=== PATIENT | male | born 1960 | race Caucasian/White ===

== ENCOUNTER 2016-06-16 22:04 | Emergency (ER) | payer OTHER ==
--- NOTE | 2016-06-16 22:51 | ED NURSING NOTES ---
Clinical Report - Nurses [facility] [address] [place] [address] 06/16/2016 22:05 Patient: JOSE CHEN TRIAGE Triage time 22:21 Jun 16 2016. Acuity: LEVEL 4. Chief Complaint: LEFT LOWER EXTREMITY PAIN, SWELLING, REDNESS, NUMBNESS and TINGLING. Location of symptoms- (Pt has a visible wound in between his 4th and 5th toes. His 4th toe is grossly swollen.). SEPSIS SCREEN: Sepsis Screen: heart rate greater than 90. --22:30 Ryan Ortega R.N. 22:21 06/16/16. BP: 100/78. HR: 97. RR: 18. O2 saturation: 97% on room air. Temp: 100.7 F. Pain level now: 0/10. --22:30 Ryan Ortega R.N. Weight: 147.4 kg stated. Height/Length: 72 inches Per Patient. BMI: 44.1. --22:21 Ryan Ortega R.N. Medications Mirapex Oral. --22:24 Ryan Ortega R.N. Humalin. --22:25 Ryan Ortega R.N. MetFORMIN HCl Oral. --22:25 Ryan Ortega R.N. Chlorathalodone. --22:27 Ryan Ortega R.N. Pantoprazole Sodium Oral. Simvastatin Oral. --22:27 Ryan Ortega R.N. Losartan Potassium Oral. --22:27 Ryan Ortega R.N. Gabapentin Oral. --22:28 Ryan Ortega R.N. Aspirin Adult Low Strength Oral. --22:28 Ryan Ortega R.N. Allergies Penicillin. --22:24 Ryan Ortega R.N. History Arrived by private vehicle. Historian: patient and family. Accompanied by family. This occurred today. It is described as radiating to the left (Pain radiating to L flank). He has had swelling and fever. 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 (Gabapentin). PAST MEDICAL HX: Tetanus status: up-to-date. Immunizations: up-to-date. SOCIAL HX: Never smoker. No alcohol use or drug use. No infectious disease exposure. FALL RISK ASSESSMENT: Fall risk assessment completed. No fall risk identified. NUTRITIONAL RISK ASSESSMENT: The nutritional risk assessment revealed no deficiencies. FUNCTIONAL ASSESSMENT: Functional assessment: no impairments noted. LEARNING NEEDS ASSESSMENT: The learning needs assessment revealed no barriers. SKIN INTEGRITY ASSESSMENT: Skin integrity risk assessment completed. No skin integrity risk identified. --22:30 Rayn Ortega R.N. PROBLEMS: Abdominal Pain. Sleep Apnea. Hypertension. Diabetes Mellitus. --22:28 Ryan Ortega R.N. ADDITIONAL SURGERIES: Adenoidectomy. Appendectomy. Ear surgery. Tonsillectomy. --22:29 Ryan Ortega R.N. Interventions ID band on patient. --22:30 Ryan Ortega R.N. PHYSICAL ASSESSMENT GENERAL / NEURO / PSYCH: Oriented X 4. Alert. Appears in no acute distress. EXTREMITIES: Increased warmth on the extremities. Edema of the left lower extremity. 4th toe. Extremity pulses are within normal limits. Left foot: swelling and erythema. Limited weight bearing secondary to pain. SKIN: Single old draining wound present on the left foot. Skin is warm and dry. --22:31 Ryan Ortega R.N. NURSING PROGRESS NOTES The plan of care for this patient has been created. Monitoring of patient in place. Extremity elevated. Reassurance given. Two patient identifiers checked. Side rails up x 2. Bed placed in lowest position. Patient ready for evaluation- chart flagged and SPECIAL EFFECTS DESIGNER notified. ( SPECIAL EFFECTS DESIGNER in to assess Pt, VSS, monitoring in place. Family at bedside.). --22:32 Ryan Ortega R.N. ( Xray completed at bedside.). --22:41 Ryan Ortega R.N. Wound cleansed with sterile saline and Hibiclens. Dressing changed. Applied clean dressing consisting of 4x4 gauze. Secured with tape .1% total body surface area covered with dressing. ( Pt tolerated wound cleansing well, denied pain throughout. technical sales engineer to provide orthopedic shoe for Pt. Pt ready for DC.). --23:21 Ryan Ortega R.N. ( FS Blood Glucose: 225). --23:30 Ryan Ortega R.N. DISPOSITION / DISCHARGE 23:23 06/16/16. BP: 133/58. HR: 104. RR: 22. O2 saturation: 93% on room air. Temp: 100.8 F. Pain level now: 05/14. --23:28 Ryan Ortega R.N. 23:32 06/16/16. HR: 96. RR: 20. O2 saturation: 94% on room air. --23:32 Ryan Ortega R.N. Condition at departure: stable. The goals identified in the patient's plan of care were met. No learning barriers present. Discharge instructions provided and reviewed with the patient and spouse. Reviewed medication(s) side effects, precautions, dosing and course information. Prescription(s) given to the patient. Reviewed wound care, skin care and foot care instructions. Reviewed referral to a primary care physician for followup. Patient and spouse verbalized understanding. Written instructions provided in Kiswahili. The patient was discharged by the nurse practitioner. He was discharged home and accompanied by spouse. He left the Emergency Department in a wheelchair and via private vehicle. Spouse driving. ( Pt dc'd in stable condition, ambulatory to wheelchair, vitals the same, Pt verbalized understanding of DC instructions.). --23:41 Ryan Ortega R.N. Departure time: 23:40 Jun 16 2016. --23:41 Ryan Ortega R.N. Locked/Released at 06/16/2016 23:42 by Ryan Ortega R.N.
--- NOTE | 2016-06-16 22:51 | ED CLINICAL REPORT ---
Clinical Report - Physicians/Mid Levels [facility] [address] [place] [address] 06/16/2016 22:05 Patient: JOSE CHEN Time Seen: 2222; upon arrival, initial patient contact, initial documentation, patient care assumed. Arrived- By private vehicle. Historian- patient. HISTORY OF PRESENT ILLNESS Chief Complaint: Injury to the left 4th toe. The injury happened unknown. ( has neuropathy in feet, can't feel anything, so doesn't know when injury occurred or how, but this evening he noticed yellow pus and lots of clear fluid draining out of it and saw his 4th toe was swollen and purple). Patient is not experiencing pain. Patient denies injury to the head or neck. No other injury. REVIEW OF SYSTEMS The patient sustained a laceration. He has had swelling. He has had numbness, (not new). No tingling or weakness. He has no pain on weight bearing. PAST HISTORY See nurses notes. PROBLEMS: Abdominal Pain. Sleep Apnea. Hypertension. Diabetes Mellitus. --22:28 Ryan Ortega R.N. ADDITIONAL SURGERIES: Adenoidectomy. Appendectomy. Ear surgery. Tonsillectomy. --22:29 Ryan Ortega R.N. SOCIAL HISTORY Never smoker. Occasional alcohol use. No drug use. No recent travel. Is a local resident. FAMILY HISTORY No significant family medical history. ADDITIONAL NOTES The nursing notes have been reviewed with agreement regarding the chief complaint, HPI, ROS, PMH and patient medications and allergies. PHYSICAL EXAM Vital Signs: 06/16/2016 22:21 BP: 100/78. HR: 97. RR: 18. O2 saturation: 97%. Temp: 100.7 F. Pain level now: 0/10. Have been reviewed as abnormal and appear to be correct. Blood pressure normal. Heart rate normal. Respiratory rate normal. Febrile. Oxygen saturation normal. Appearance: Alert. Oriented X3. No acute distress. Head: Head atraumatic. Eyes: Pupils equal, round and reactive to light. Eyes normal inspection. Respiratory: No respiratory distress. Abdomen: Moderately obese. Skin: Skin intact. Skin warm and dry. Extremities: Foot injury present. Left fourth toe: mild erythema, severe swelling and large ecchymosis. Neurovascular intact distally. (entire toe swollen and contusion present, pressure on lateral side of toe, draining pus and foul odor). No tenderness, laceration, abrasion, puncture wound or foreign body. No deformity. No limitation in movement. No localization, subungual hematoma or amputation present. (top of foot at base of 4th toe has mild erythema and warmth). No ankle injury. Foot and ankle exam otherwise negative. Extremities otherwise negative. Neuro, Vascular and Tendons: Vascular status intact. Sensory deficit present. Decreased light touch sensation in the right foot and left foot. Motor intact. Tendon function intact. Gait: Abnormal gait. Limping gait. (per nurse). Neuro: Oriented X 3. No motor deficit. No sensory deficit. Note: isolated issue/injury to foot/toe. LABS, X-RAYS, AND EKG X-Rays: Left foot. Lt Foot X-ray: Left toe(s) fracture. Fracture involving the middle phalanx of the fourth toe. No open, angulated or displaced fracture of the fourth toe. PROGRESS AND PROCEDURES Course of Care: tx options discussed and decided against dandy taping toes together due to wear ulcer was located, afraid tape would make wound worse. Patient and spouse counseled in person regarding the patient's stable condition, test results and diagnosis. 22:51. Differential Diagnosis: Other possible considerations: fx, contusion, abscess, pressure ulcer, diabetic ulcer, cellulitis, neuropathy. Above considerations are based on history, physical exam and X-Ray data. Differential diagnosis was discussed with patient. Disposition: Discharged home in good and improved condition (22:51). Condition: good and stable. CLINICAL IMPRESSION Acute fever Closed nondisplaced middle phalanx fracture of the left 4th toe. No angulated fracture of the phalanx. Stage 3 pressure ulcer with full thickness skin loss on the left 4th toe. Inflammation and cellulitis present. INSTRUCTIONS Protect wound and keep wound area clean. Change dressing twice daily. Soak in warm soapy water twice daily. Apply bacitracin twice daily. Warnings: GENERAL WARNINGS: Return or contact your physician immediately if your condition worsens or changes unexpectedly, if not improving as expected, or if other problems arise. Specifically return if problem worsens. Prescription Medications: Motrin 800 mg tablets: take 1 tablet orally every 8 hours as needed for pain. Dispense thirty (30). No refills. Substitution is permissible. Bactrim DS 800 mg / 160 mg: take 1 tablet orally every 12 hours for 10 days. No refill. Understanding of the discharge instructions verbalized by patient. Follow-up with: Elijah Panda DPM, Podiatry, , [facility], [address] [place] [address], [address], [place] [address]; Ronald Roman DPM, Podiatry, , [address] [place] [address] [address], [place] [address] Follow up in about two days even if well and for wound check. Call for an appointment. Summary of care provided to patient. (Electronically signed by Cristina Jenkins A.R.N.P. 06/18/2016 13:02)
--- NOTE | 2016-06-16 22:51 | ED ORDER SUMMARY ---
..... Patient: JOSE CHEN OrderSheet [facility] VisitID: [id number] [place] [address] 56y, M Registration Date/Time: 06/16/2016 ORDER SHEET Weight: 147.4 kg (stated) Allergies: Penicillin GENERAL ORDERS: Foot 3V Left (focus on 4th digit) Urgent (22:27 06/16/2016 HBivens A.R.N.P.) (Ack 22:33 AMcQuoid ER Tech1) (23:08 Marie) Dress Wounds (22:49 06/16/2016 HBivens A.R.N.P.) (23:16 MCook R.N.) Orthopedic Shoe (22:49 06/16/2016 HBivens A.R.N.P.) (23:16 MCook R.N.) MEDICATION ORDERS: IV FLUIDS: ORDER SHEET NOTES: [Electronically signed by Ryan Ortega R.N. (23:42 06/16/2016)] [Electronically signed by Cristina JenkinsR.N.PChristal (13:02 06/18/2016)] [Electronically locked/signed by Ryan Ortega R.N. (23:42 06/16/2016)]
--- NOTE | 2016-06-16 22:51 | ED ORDER SUMMARY ---
..... Patient: JOSE CHEN OrderSheet [facility] VisitID: [id number] [place] [address] 56y, M Registration Date/Time: 06/16/2016 ORDER SHEET Weight: 147.4 kg (stated) Allergies: Penicillin GENERAL ORDERS: Foot 3V Left (focus on 4th digit) Urgent (22:27 06/16/2016 HBivens A.R.N.P.) (Ack 22:33 AMcQuoid ER Tech1) (23:08 Marie) Dress Wounds (22:49 06/16/2016 HBivens A.R.N.P.) (23:16 MCook R.N.) Orthopedic Shoe (22:49 06/16/2016 HBivens A.R.N.P.) (23:16 MCook R.N.) MEDICATION ORDERS: IV FLUIDS: ORDER SHEET NOTES: [Electronically signed by Ryan Ortega R.N. (23:42 06/16/2016)] [Electronically signed by Cristina JenkinsR.N.PChristal (13:02 06/18/2016)] [Electronically locked/signed by Ryan Ortega R.N. (23:42 06/16/2016)]
--- NOTE | 2016-06-16 22:51 | ED NURSING NOTES ---
Clinical Report - Nurses [facility] [address] [place] [address] 06/16/2016 22:05 Patient: JOSE CHEN TRIAGE Triage time 22:21 Jun 16 2016. Acuity: LEVEL 4. Chief Complaint: LEFT LOWER EXTREMITY PAIN, SWELLING, REDNESS, NUMBNESS and TINGLING. Location of symptoms- (Pt has a visible wound in between his 4th and 5th toes. His 4th toe is grossly swollen.). SEPSIS SCREEN: Sepsis Screen: heart rate greater than 90. --22:30 Ryan Ortega R.N. 22:21 06/16/16. BP: 100/78. HR: 97. RR: 18. O2 saturation: 97% on room air. Temp: 100.7 F. Pain level now: 0/10. --22:30 Ryan Ortega R.N. Weight: 147.4 kg stated. Height/Length: 72 inches Per Patient. BMI: 44.1. --22:21 Ryan Ortega R.N. Medications Mirapex Oral. --22:24 Ryan Ortega R.N. Humalin. --22:25 Ryan Ortega R.N. MetFORMIN HCl Oral. --22:25 Ryan Ortega R.N. Chlorathalodone. --22:27 Ryan Ortega R.N. Pantoprazole Sodium Oral. Simvastatin Oral. --22:27 Ryan Ortega R.N. Losartan Potassium Oral. --22:27 Ryan Ortega R.N. Gabapentin Oral. --22:28 Ryan Ortega R.N. Aspirin Adult Low Strength Oral. --22:28 Ryan Ortega R.N. Allergies Penicillin. --22:24 Ryan Ortega R.N. History Arrived by private vehicle. Historian: patient and family. Accompanied by family. This occurred today. It is described as radiating to the left (Pain radiating to L flank). He has had swelling and fever. 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 (Gabapentin). PAST MEDICAL HX: Tetanus status: up-to-date. Immunizations: up-to-date. SOCIAL HX: Never smoker. No alcohol use or drug use. No infectious disease exposure. FALL RISK ASSESSMENT: Fall risk assessment completed. No fall risk identified. NUTRITIONAL RISK ASSESSMENT: The nutritional risk assessment revealed no deficiencies. FUNCTIONAL ASSESSMENT: Functional assessment: no impairments noted. LEARNING NEEDS ASSESSMENT: The learning needs assessment revealed no barriers. SKIN INTEGRITY ASSESSMENT: Skin integrity risk assessment completed. No skin integrity risk identified. --22:30 Ryan Ortega R.N. PROBLEMS: Abdominal Pain. Sleep Apnea. Hypertension. Diabetes Mellitus. --22:28 Ryan Ortega R.N. ADDITIONAL SURGERIES: Adenoidectomy. Appendectomy. Ear surgery. Tonsillectomy. --22:29 Ryan Ortega R.N. Interventions ID band on patient. --22:30 Ryan Ortega R.N. PHYSICAL ASSESSMENT GENERAL / NEURO / PSYCH: Oriented X 4. Alert. Appears in no acute distress. EXTREMITIES: Increased warmth on the extremities. Edema of the left lower extremity. 4th toe. Extremity pulses are within normal limits. Left foot: swelling and erythema. Limited weight bearing secondary to pain. SKIN: Single old draining wound present on the left foot. Skin is warm and dry. --22:31 Ryan Ortega R.N. NURSING PROGRESS NOTES The plan of care for this patient has been created. Monitoring of patient in place. Extremity elevated. Reassurance given. Two patient identifiers checked. Side rails up x 2. Bed placed in lowest position. Patient ready for evaluation- chart flagged and MANAGER EDITORIAL notified. ( MANAGER EDITORIAL in to assess Pt, VSS, monitoring in place. Family at bedside.). --22:32 Ryan Ortega R.N. ( Xray completed at bedside.). --22:41 Ryan Ortega R.N. Wound cleansed with sterile saline and Hibiclens. Dressing changed. Applied clean dressing consisting of 4x4 gauze. Secured with tape .1% total body surface area covered with dressing. ( Pt tolerated wound cleansing well, denied pain throughout. marketing technology coordinator to provide orthopedic shoe for Pt. Pt ready for DC.). --23:21 Ryan Ortega R.N. ( FS Blood Glucose: 225). --23:30 Ryan Ortega R.N. DISPOSITION / DISCHARGE 23:23 06/16/16. BP: 133/58. HR: 104. RR: 22. O2 saturation: 93% on room air. Temp: 100.8 F. Pain level now: 05/14. --23:28 Ryan Ortega R.N. 23:32 06/16/16. HR: 96. RR: 20. O2 saturation: 94% on room air. --23:32 Ryan Ortega R.N. Condition at departure: stable. The goals identified in the patient's plan of care were met. No learning barriers present. Discharge instructions provided and reviewed with the patient and spouse. Reviewed medication(s) side effects, precautions, dosing and course information. Prescription(s) given to the patient. Reviewed wound care, skin care and foot care instructions. Reviewed referral to a primary care physician for followup. Patient and spouse verbalized understanding. Written instructions provided in Yi. The patient was discharged by the nurse practitioner. He was discharged home and accompanied by spouse. He left the Emergency Department in a wheelchair and via private vehicle. Spouse driving. ( Pt dc'd in stable condition, ambulatory to wheelchair, vitals the same, Pt verbalized understanding of DC instructions.). --23:41 Ryan Ortega R.N. Departure time: 23:40 Jun 16 2016. --23:41 Ryan Ortega R.N. Locked/Released at 06/16/2016 23:42 by Ryan Ortega R.N.
--- NOTE | 2016-06-16 22:51 | ED CLINICAL REPORT ---
Clinical Report - Physicians/Mid Levels [facility] [address] [place] [address] 06/16/2016 22:05 Patient: JOSE CHEN Time Seen: 2222; upon arrival, initial patient contact, initial documentation, patient care assumed. Arrived- By private vehicle. Historian- patient. HISTORY OF PRESENT ILLNESS Chief Complaint: Injury to the left 4th toe. The injury happened unknown. ( has neuropathy in feet, can't feel anything, so doesn't know when injury occurred or how, but this evening he noticed yellow pus and lots of clear fluid draining out of it and saw his 4th toe was swollen and purple). Patient is not experiencing pain. Patient denies injury to the head or neck. No other injury. REVIEW OF SYSTEMS The patient sustained a laceration. He has had swelling. He has had numbness, (not new). No tingling or weakness. He has no pain on weight bearing. PAST HISTORY See nurses notes. PROBLEMS: Abdominal Pain. Sleep Apnea. Hypertension. Diabetes Mellitus. --22:28 Ryan Ortega R.N. ADDITIONAL SURGERIES: Adenoidectomy. Appendectomy. Ear surgery. Tonsillectomy. --22:29 Ryan Ortega R.N. SOCIAL HISTORY Never smoker. Occasional alcohol use. No drug use. No recent travel. Is a local resident. FAMILY HISTORY No significant family medical history. ADDITIONAL NOTES The nursing notes have been reviewed with agreement regarding the chief complaint, HPI, ROS, PMH and patient medications and allergies. PHYSICAL EXAM Vital Signs: 06/16/2016 22:21 BP: 100/78. HR: 97. RR: 18. O2 saturation: 97%. Temp: 100.7 F. Pain level now: 0/10. Have been reviewed as abnormal and appear to be correct. Blood pressure normal. Heart rate normal. Respiratory rate normal. Febrile. Oxygen saturation normal. Appearance: Alert. Oriented X3. No acute distress. Head: Head atraumatic. Eyes: Pupils equal, round and reactive to light. Eyes normal inspection. Respiratory: No respiratory distress. Abdomen: Moderately obese. Skin: Skin intact. Skin warm and dry. Extremities: Foot injury present. Left fourth toe: mild erythema, severe swelling and large ecchymosis. Neurovascular intact distally. (entire toe swollen and contusion present, pressure on lateral side of toe, draining pus and foul odor). No tenderness, laceration, abrasion, puncture wound or foreign body. No deformity. No limitation in movement. No localization, subungual hematoma or amputation present. (top of foot at base of 4th toe has mild erythema and warmth). No ankle injury. Foot and ankle exam otherwise negative. Extremities otherwise negative. Neuro, Vascular and Tendons: Vascular status intact. Sensory deficit present. Decreased light touch sensation in the right foot and left foot. Motor intact. Tendon function intact. Gait: Abnormal gait. Limping gait. (per nurse). Neuro: Oriented X 3. No motor deficit. No sensory deficit. Note: isolated issue/injury to foot/toe. LABS, X-RAYS, AND EKG X-Rays: Left foot. Lt Foot X-ray: Left toe(s) fracture. Fracture involving the middle phalanx of the fourth toe. No open, angulated or displaced fracture of the fourth toe. PROGRESS AND PROCEDURES Course of Care: tx options discussed and decided against dandy taping toes together due to wear ulcer was located, afraid tape would make wound worse. Patient and spouse counseled in person regarding the patient's stable condition, test results and diagnosis. 22:51. Differential Diagnosis: Other possible considerations: fx, contusion, abscess, pressure ulcer, diabetic ulcer, cellulitis, neuropathy. Above considerations are based on history, physical exam and X-Ray data. Differential diagnosis was discussed with patient. Disposition: Discharged home in good and improved condition (22:51). Condition: good and stable. CLINICAL IMPRESSION Acute fever Closed nondisplaced middle phalanx fracture of the left 4th toe. No angulated fracture of the phalanx. Stage 3 pressure ulcer with full thickness skin loss on the left 4th toe. Inflammation and cellulitis present. INSTRUCTIONS Protect wound and keep wound area clean. Change dressing twice daily. Soak in warm soapy water twice daily. Apply bacitracin twice daily. Warnings: GENERAL WARNINGS: Return or contact your physician immediately if your condition worsens or changes unexpectedly, if not improving as expected, or if other problems arise. Specifically return if problem worsens. Prescription Medications: Motrin 800 mg tablets: take 1 tablet orally every 8 hours as needed for pain. Dispense thirty (30). No refills. Substitution is permissible. Bactrim DS 800 mg / 160 mg: take 1 tablet orally every 12 hours for 10 days. No refill. Understanding of the discharge instructions verbalized by patient. Follow-up with: Elijah Panda DPM, Podiatry, , [facility], [address] [place] [address], [address], [place] [address]; Ronald Roman DPM, Podiatry, , [address] [place] [address] [address], [place] [address] Follow up in about two days even if well and for wound check. Call for an appointment. Summary of care provided to patient. (Electronically signed by Cristina Jenkins A.R.N.P. 06/18/2016 13:02)
--- NOTE | 2016-06-16 23:56 | DIAGNOSTIC IMAGING REPORT ---
PROCEDURE: XR FOOT 3 VIEWS - LEFT INDICATION: TRAUMA/INJURY TECHNIQUE: Three views. COMPARISON: None. FINDINGS: Soft tissue swelling of the left fourth toe with small avulsion fracture lateral aspect of the PIP joint. Hallux valgus with moderate first MTP joint degenerative changes. IMPRESSION: 1. Avulsion fracture left fourth PIP joint with soft tissue swelling 2. Hallux valgus and first MTP joint degenerative changes
--- NOTE | 2016-06-18 13:03 | ED MED RECONCILIATION SUMMARY ---
Patient: JOSE CHEN Medication Reconciliation Report [facility] VisitID: [id number] [address] [place] [address] 56y, M Registration Date/Time: 06/16/2016 Weight: 147.4 kg Height/Length: 72 in. BMI: 44.1 ALLERGIES: Penicillin The patient's Home Medications are listed below: THE FOLLOWING MEDICATIONS NEED TO BE RECONCILED: Aspirin Adult Low Strength Oral Chlorathalodone Gabapentin Oral Humalin Losartan Potassium Oral MetFORMIN HCl Oral Mirapex Oral Pantoprazole Sodium Oral Simvastatin Oral The source(s) of the original Home Medication information: Not obtained. The following Medications were given to the patient in the Emergency Department: None. The following Medications were prescribed to the patient: Motrin 800 mg tablets: take 1 tablet orally every 8 hours as needed for pain. Dispense thirty (30). No refills. Substitution is permissible. -- Cristina Jenkins, Asael.R.N.P. Bactrim DS 800 mg / 160 mg: take 1 tablet orally every 12 hours for 10 days. No refill. -- Cristina Jenkins A.R.N.P.
--- NOTE | 2016-06-18 13:03 | ED MAR SUMMARY ---
..... Medication Administration Record [facility] [address], [place] [id number] Patient: JOSE CHEN Visit ID: [id number] 56y, M Weight: 147.4 kg Height/Length: 72 in BMI: 44.1 ALLERGIES: Penicillin
--- NOTE | 2016-06-18 13:03 | ED DISCHARGE INSTRUCTIONS ---
Patient: JOSE CHEN General Instructions [facility] VisitID: [id number] [place] [address] 56y, M Registration Date/Time: 06/16/2016 Acute fever Closed nondisplaced middle phalanx fracture of the left 4th toe. No angulated fracture of the phalanx. Stage 3 pressure ulcer with full thickness skin loss on the left 4th toe. Inflammation and cellulitis present. INSTRUCTIONS Protect wound and keep wound area clean. Change dressing twice daily. Soak in warm soapy water twice daily. Apply bacitracin twice daily. Warnings: GENERAL WARNINGS: Return or contact your physician immediately if your condition worsens or changes unexpectedly, if not improving as expected, or if other problems arise. Specifically return if problem worsens. Prescription Medications: Motrin 800 mg tablets: take 1 tablet orally every 8 hours as needed for pain. Dispense thirty (30). No refills. Substitution is permissible. Bactrim DS 800 mg / 160 mg: take 1 tablet orally every 12 hours for 10 days. No refill. Understanding of the discharge instructions verbalized by patient. Follow-up with: Elijah Panda DPM, Podiatry, , [facility], [address] [place] [address], [address], [place] [address]; Ronald Roman DPM, Podiatry, , [address] [place] [address]. [address], [place] [address] Follow up in about two days even if well and for wound check. Call for an appointment. Summary of care provided to patient. ADDITIONAL INFORMATION Fracture:Toe [Closed] You have a fracture of your toe (broken toe). This causes local pain, swelling and bruising. This injury takes about four weeks to heal. Toe injuries are often treated by taping the injured toe to the next one ("dandy taping"). This protects the injured toe and holds it in position. If the TOENAIL has been severely injured, it may fall off in 1-2 weeks. It takes up to 12 months for a new toenail to grow back. Home Care: 1) You may be given a cast shoe to wear to prevent movement in your toe. If not, you can use a sandal or any shoe that does not put pressure on the injured toe until the swelling and pain go away. If using a sandal, be careful not to strike your foot against anything, since another injury could make the fracture worse. If you were given crutches, do not put full weight on the injured foot until you can do so without pain. 2) Keep your foot elevated to reduce pain and swelling. When sleeping, place a pillow under the injured leg. When sitting, support the injured leg so it is level with your waist. This is very important during the first 48 hours. 3) Apply an ice pack (ice cubes in a plastic bag, wrapped in a towel) over the injured area for 20 minutes every 1-2 hours the first day. Continue with ice packs 3-4 times a day for the next two days, then as needed for the relief of pain and swelling. 4) If dandy tape was applied and it becomes wet or dirty, change it. You may replace it with paper, plastic or cloth tape. Cloth tape and paper tapes must be kept dry. 5) You may use acetaminophen (Tylenol) or ibuprofen (Motrin, Advil) to control pain, unless another pain medicine was prescribed. [ NOTE : If you have chronic liver or kidney disease or ever had a stomach ulcer or GI bleeding, talk with your doctor before using these medicines.] 6) You may return to sports or physical education activities after 4 weeks or when you can run without pain. Follow Up With Your Doctor In One Week, Or As Advised By Our Staff, To Be Sure The Bone Is Healing Properly. [NOTE: Any X-rays taken will be reviewed by a radiologist. You will be notified of any new findings that may affect your care.] Get Prompt Medical Attention If Any Of The Following Occur: Increasing pain or swelling Toe becomes cold, blue, numb or tingly Signs of infection: fever, redness, warmth, swelling or drainage from the wound Fever of 100.4F (38C) or higher, or as directed by your healthcare provider Febrile Illness, Uncertain Cause (Adult) You have a fever, but the cause is not certain. A fever is a natural reaction of the body to an illness such as infections due to a virus or bacteria. In most cases, the temperature itself is not harmful. It actually helps the body fight infections. A fever does not need to be treated unless you feel very uncomfortable. Sometimes a fever can be an early sign of a more serious infection. Therefore, you should watch for the signs listed below. Home Care: If signs and symptoms are severe, rest at home for the first 2-3 days. When you resume activity, don't let yourself get too tired. Stay away from cigarette smoke (yours and other peoples). You may use acetaminophen (Tylenol) or ibuprofen (Motrin, Advil) to control fever or pain, unless another medicine was prescribed. NOTE: If you have chronic liver or kidney disease or ever had a stomach ulcer or GI bleeding, talk with your doctor before using these medicines. (Aspirin should never be used in anyone under 18 years of age who is ill with a fever. It may cause severe liver damage.) Your appetite may be poor, so a light diet is fine. Avoid dehydration by drinking 6-8 glasses of fluid per day (water, sport drinks such as Gatorade, sodas without caffeine, juices, tea, soup). Extra fluid will help loosen secretions in the nose and lungs. [id number] products will not shorten the duration of the illness but may be helpful for the following symptoms: cough (Robitussin DM); sore throat (Chloraseptic lozenges or spray); nasal and sinus congestion (Actifed or Sudafed). NOTE: Do not use decongestants if you have high blood pressure. Follow Up with your doctor or as advised if you do not start to improve over the next week. Get Prompt Medical Attention if any of the following occur: Cough with lots of colored sputum (mucus) or blood in your sputum Chest pain, shortness of breath, wheezing or difficulty breathing Severe headache, face, neck, throat or ear pain Feeling drowsy or confused Abdominal pain, repeated vomiting or diarrhea Joint pain or a new rash Burning when urinating Fever of 100.4F (38C) oral or higher, not better with fever medication Feeling weak or dizzy Convulsion Taking Your Child's Temperature If your child feels hot, then check the temperature. Under 3 months : Start with a AXILLARY temperature. If it is above 99.0 F (37.2 C), take a RECTAL temperature. 3 months to 4 years : Measure a RECTAL temperature, or an EAR temperature. Over 4 years : Measure an ORAL temperature. Rectal Temperature is the most accurate. Ear temperature is not as accurate as a rectal or oral temperature, but is more convenient and can be used in the 3 month to 4 year old. Other methods such as plastic strips , forehead devices , and pacifier thermometers are even less accurate and they are not recommended. If you do not know how to use a thermometer, ask your nurse or pharmacist. Oral Method: Normal: 98.6 F (37.0 C). Range of normal: Up to 99.0 F (37.2 C). Recommended Age: Use this method for children older than 4 or 5 years of age, only if cooperative. 1) Wait at least 20 minutes after drinking or eating before taking an oral temperature. 2) Place the tip of a the thermometer under the child's tongue. 3) Have child close lips gently, without biting on the thermometer. 4) Keep under the tongue until the thermometer beeps. 5) Remove thermometer and read the temperature in the display. 6) Clean the thermometer with alcohol, or soap and water after each use. Axillary Method (UNDER THE ARM): Normal: 97.6 F (36.6 C) Range of Normal: Up to 98.6 F (37.0 C) Recommended Age: Use this method for children under 4 years of age or any uncooperative child. 1) Make sure armpit is dry and the child does not have clothing between arm and chest. 2) Place the tip of the thermometer high up in the armpit. 4) Hold the child's arm snug against their body with the thermometer in place until it beeps. 5) Remove thermometer and read the temperature in the display. 6) Clean the thermometer with alcohol, or soap and water after each use. Rectal Method: Normal: 99.6 F (37.6 C). Range of Normal: Up to 100.4 F (38.0 C). Recommended age: Use this method for children under 4 years of age or any uncooperative child. 1) Lubricate the tip of a rectal thermometer with a lubricant such as Vaseline jelly or K-Y jelly. 2) Lay your child face down across your lap, or on his/her side with knees bent toward the chest. Spread buttocks so that the anus can be easily seen. 3) Hold the thermometer between your thumb and index finger with the edge of your hand resting on the buttocks. Slowly and gently insert thermometer into the anus about one inch. The tip should slide in easily. Do not force it since they may cause injury. 4) Do not let go of the thermometer! Hold it carefully in place until it beeps. 5) Remove thermometer and read the temperature in the display. 6) Clean the thermometer with alcohol, or soap and water after each use. When To Seek Help Call your doctor or return here if you have an infant younger than 3 months with a temperature of 100.4 F (38.0 C) or an older child with a fever higher than 104.0 F (40.0 C). Decubitus Ulcer A decubitus ulcer starts as a pressure sore (red, tender area on skin). It is caused by lying on a bony area for long periods of time without turning, causing a decrease in blood flow to that part of the skin. Decubitus ulcers usually occur on the lower back, buttocks or heels in persons who spend most or all of their time in bed. Healing time is slow and depends on the size and depth of the ulcer. If a decubitus ulcer becomes infected, it will cause redness in the skin around the ulcer and pus will drain from the wound. If not treated early, a decubitus infection can spread to the bloodstream or nearby bone. Home care The following guidelines will help you care for your wound at home: All ulcers should be looked at every day with good lighting to watch for signs of infection. At the same time, check other skin pressure points for early signs of a skin changes. Changing positions every few hours allows blood to flow to the pressure areas. This is essential for healing to occur. Use of special mattresses (foam, water, air mattresses) and gelpads will help reduce the pressure on the skin. Special skin coverings that remain in place may be prescribed. If a simple bandage is used, change it daily and clean the ulcer with sterile saline or another solution advised by your doctor. Pat dry. Apply any prescribed lotion or cream. Cover with a dry clean gauze pad. Bed linen should be kept clean and dry. Avoid soiling the ulcer with feces or urine. If this is not possible, minimize the time of contact with the feces or urine. Follow-up care Follow up with your doctor as advised by our staff. When to seek medical care Get prompt medical attention if any of the following occur: Increasing redness around the wound Increasing local pain or swelling Pus draining from a wound (not already treated) Unexplained fever over 100.4F (38.0C) oral, or higher Ibuprofen Oral tablet What is this medicine? IBUPROFEN (eye BYOO proe fen) is a non-steroidal anti-inflammatory drug (NSAID). It is used for dental pain, fever, headaches or migraines, osteoarthritis, rheumatoid arthritis, or painful monthly periods. It can also relieve minor aches and pains caused by a cold, flu, or sore throat. How should I use this medicine? Take this medicine by mouth with a glass of water. Follow the directions on the prescription label. Take this medicine with food if your stomach gets upset. Try to not lie down for at least 10 minutes after you take the medicine. Take your medicine at regular intervals. Do not take your medicine more often than directed. A special MedGuide will be given to you by the pharmacist with each prescription and refill. Be sure to read this information carefully each time. Talk to your gate technician regarding the use of this medicine in children. Special care may be needed. What side effects may I notice from receiving this medicine? Side effects that you should report to your doctor or health director of home care hospice as soon as possible: allergic reactions like skin rash, itching or hives, swelling of the face, lips, or tongue black or bloody stools, blood in the urine or in vomit breathing problems changes in vision chest pain general ill feeling or flu-like symptoms nausea or vomiting redness, blistering, peeling or loosening of the skin, including inside the mouth slurred speech or weakness on one side of the body stomach pain unexplained weight gain or swelling unusually weak or tired yellowing of eyes or skin Side effects that usually do not require medical attention (report to your doctor or health director of home care hospice if they continue or are bothersome): constipation or diarrhea dizziness gas or heartburn stomach upset What may interact with this medicine? Do not take this medicine with any of the following medications: cidofovir ketorolac methotrexate pemetrexed This medicine may also interact with the following medications: alcohol aspirin diuretics lithium other drugs for inflammation like prednisone warfarin What if I miss a dose? If you miss a dose, take it as soon as you can. If it is almost time for your next dose, take only that dose. Do not take double or extra doses. Where should I keep my medicine? Keep out of the reach of children. Store at room temperature between 15 and 30 degrees C (59 and 86 degrees F). Keep container tightly closed. Throw away any unused medicine after the expiration date. What should I tell my health care provider before I take this medicine? They need to know if you have any of these conditions: asthma cigarette smoker drink more than 3 alcohol containing drinks a day heart disease or circulation problems such as heart failure or leg edema (fluid retention) high blood pressure kidney disease liver disease stomach bleeding or ulcers an unusual or allergic reaction to ibuprofen, aspirin, other NSAIDS, other medicines, foods, dyes, or preservatives or trying to get breast-feeding What should I watch for while using this medicine? Tell your doctor or healthcare professional if your symptoms do not start to get better or if they get worse. This medicine does not prevent heart attack or stroke. In fact, this medicine may increase the chance of a heart attack or stroke. The chance may increase with longer use of this medicine and in people who have heart disease. If you take aspirin to prevent heart attack or stroke, talk with your doctor or health director of home care hospice. Do not take other medicines that contain aspirin, ibuprofen, or naproxen with this medicine. Side effects such as stomach upset, nausea, or ulcers may be more likely to occur. Many medicines available without a prescription should not be taken with this medicine. This medicine can cause ulcers and bleeding in the stomach and intestines at any time during treatment. Ulcers and bleeding can happen without warning symptoms and can cause . To reduce your risk, do not smoke cigarettes or drink alcohol while you are taking this medicine. You may get drowsy or dizzy. Do not drive, use machinery, or do anything that needs mental alertness until you know how this medicine affects you. Do not stand or sit up quickly, especially if you are an older patient. This reduces the risk of dizzy or fainting spells. This medicine can cause you to bleed more easily. Try to avoid damage to your teeth and gums when you brush or floss your teeth. Sulfamethoxazole, Trimethoprim Oral tablet What is this medicine? SULFAMETHOXAZOLE; TRIMETHOPRIM or SMX-TMP (suhl fuh meth OK delores zohl; trye METH oh prim) is a combination of a sulfonamide antibiotic and a second antibiotic, trimethoprim. It is used to treat or prevent certain kinds of bacterial infections. It will not work for colds, flu, or other viral infections. How should I use this medicine? Take this medicine by mouth with a full glass of water. Follow the directions on the prescription label. Take your medicine at regular intervals. Do not take it more often than directed. Do not skip doses or stop your medicine early. Talk to your gate technician regarding the use of this medicine in children. Special care may be needed. This medicine has been used in children as young as 2 months of age. What side effects may I notice from receiving this medicine? Side effects that you should report to your doctor or health director of home care hospice as soon as possible: allergic reactions like skin rash or hives, swelling of the face, lips, or tongue breathing problems fever or chills, sore throat irregular heartbeat, chest pain joint or muscle pain pain or difficulty passing urine red pinpoint spots on skin redness, blistering, peeling or loosening of the skin, including inside the mouth unusual bleeding or bruising unusually weak or tired yellowing of the eyes or skin Side effects that usually do not require medical attention (report to your doctor or health director of home care hospice if they continue or are bothersome): diarrhea dizziness headache loss of appetite nausea, vomiting nervousness What may interact with this medicine? Do not take this medicine with any of the following medications: aminobenzoate potassium dofetilide metronidazole This medicine may also interact with the following medications: HAMZAH inhibitors like benazepril, enalapril, lisinopril, and ramipril cyclosporine digoxin diuretics indomethacin medicines for diabetes methenamine methotrexate phenytoin potassium supplements pyrimethamine sulfinpyrazone tricyclic antidepressants warfarin What if I miss a dose? If you miss a dose, take it as soon as you can. If it is almost time for your next dose, take only that dose. Do not take double or extra doses. Where should I keep my medicine? Keep out of the reach of children. Store at room temperature between 20 to 25 degrees C (68 to 77 degrees F). Protect from light. Throw away any unused medicine after the expiration date. What should I tell my health care provider before I take this medicine? They need to know if you have any of these conditions: anemia asthma being treated with anticonvulsants if you frequently drink alcohol containing drinks kidney disease liver disease low level of folic acid or [id number] dehydrogenase poor nutrition or malabsorption porphyria severe allergies thyroid disorder an unusual or allergic reaction to sulfamethoxazole, trimethoprim, sulfa drugs, other medicines, foods, dyes, or preservatives or trying to get breast-feeding What should I watch for while using this medicine? Tell your doctor or health director of home care hospice if your symptoms do not improve. Drink several glasses of water a day to reduce the risk of kidney problems. Do not treat diarrhea with over the counter products. Contact your doctor if you have diarrhea that lasts more than 2 days or if it is severe and watery. This medicine can make you more sensitive to the sun. Keep out of the sun. If you cannot avoid being in the sun, wear protective clothing and use a sunscreen. Do not use sun lamps or tanning beds/booths. You have been given the following additional information: Fracture, Toe [Closed] Febrile Illness, Uncertain Cause (Adult) Thermometer Use Decubitus Ulcer Ibuprofen Oral tablet Sulfamethoxazole, Trimethoprim Oral tablet (Electronically signed by Cristina Jenkins A.R.N.P. 06/18/2016 13:02)
--- NOTE | 2016-06-18 13:03 | ED MED RECONCILIATION SUMMARY ---
Patient: JOSE CHEN Medication Reconciliation Report [facility] VisitID: [id number] [address] [place] [address] 56y, M Registration Date/Time: 06/16/2016 Weight: 147.4 kg Height/Length: 72 in. BMI: 44.1 ALLERGIES: Penicillin The patient's Home Medications are listed below: THE FOLLOWING MEDICATIONS NEED TO BE RECONCILED: Aspirin Adult Low Strength Oral Chlorathalodone Gabapentin Oral Humalin Losartan Potassium Oral MetFORMIN HCl Oral Mirapex Oral Pantoprazole Sodium Oral Simvastatin Oral The source(s) of the original Home Medication information: Not obtained. The following Medications were given to the patient in the Emergency Department: None. The following Medications were prescribed to the patient: Motrin 800 mg tablets: take 1 tablet orally every 8 hours as needed for pain. Dispense thirty (30). No refills. Substitution is permissible. -- Cristina Jenkins, Asael.R.N.P. Bactrim DS 800 mg / 160 mg: take 1 tablet orally every 12 hours for 10 days. No refill. -- Cristina Jenkins A.R.N.P.
--- NOTE | 2016-06-18 13:03 | ED MAR SUMMARY ---
..... Medication Administration Record [facility] [address] [place], [place] [id number] Patient: JOSE CHEN Visit ID: [id number] 56y, M Weight: 147.4 kg Height/Length: 72 in BMI: 44.1 ALLERGIES: Penicillin
== END 2016-06-16 23:40 | disposition home or self-care (01) ==
LOC: ED SRH 22:04
DX: S92.525A Nondisplaced fracture of middle phalanx of left lesser toe(s), initial encounter for closed fracture (principal); E11.621 Type 2 diabetes mellitus with foot ulcer; L89.893 Pressure ulcer of other site, stage 3; L03.116 Cellulitis of left lower limb; R50.9 Fever, unspecified; E11.40 Type 2 diabetes mellitus with diabetic neuropathy, unspecified; X58.XXXA Exposure to other specified factors, initial encounter; Y93.9 Activity, unspecified; Y92.9 Unspecified place or not applicable; Y99.9 Unspecified external cause status; I10 Essential (primary) hypertension